=== PATIENT | female | born 1955 | race Caucasian/White ===

== ENCOUNTER → 2021-02-13 | Outpatient (CLI) | payer OTHER ==
--- NOTE | 2021-02-13 14:30 | CARD ---
MR#: [id number] Date of Study: 02/13/2021 Ordering Physician: KARYN BOJORQUEZ, Referring Physician: KARYN BOJORQUEZ, Tech: APPROVED REPORT EXAM: Two-dimensional and M-mode echocardiogram with Doppler and color Doppler. Other Information Quality : Good INDICATION Cardiomyopathy 2D DIMENSIONS RVDd3.1 (2.9-3.5cm)Left Atrium(2D)3.8 (1.6-4.0cm) IVSd1.0 (0.7-1.1cm)Aortic Root(2D)3.3 (2.0-3.7cm) LVDd5.5 (3.9-5.9cm)LVOT Diameter2.1 (1.8-2.4cm) PWd1.1 (0.7-1.1cm)LVDs4.9 (2.5-4.0cm) FS (%) 11.6 %SV36.9 ml Aortic Valve AoV Peak Dalton.116.0cm/sAoV VTI19.6cm AO Peak GR.5.4mmHgLVOT Peak Dalton.87.6cm/s AO Mean GR.3mmHgAVA (VMAX)2.52cm2 LETTY (VTI)2.54mt8AX P 1/2 Dhsr857ij Mitral Valve MV E Agltjfah33.4cm/sMV DECEL DKZZ179hg MV A Iktqgfux57.3cm/sE/A Ratio0.6 Tricuspid Valve TR P. Byxqncps440fy/sRAP FPTKSMPS4fuCx TR Peak Gr.57auDbGVMD43otOh Pulmonary Vein S1 Bfikzggd53.3cm/sD2 Lhlbpvrm16.0cm/s LEFT VENTRICLE The left ventricle is normal size. There is borderline concentric left ventricular hypertrophy. Left ventricle systolic function is moderate to moderately severely impaired. The Ejection Fraction is est imated at 30%. Septal motion consistent with conduction abnormality as well as global hypokinesis. Tr ansmitral Doppler flow pattern is Grade I-abnormal relaxation pattern. RIGHT VENTRICLE The right ventricle is normal size. The right ventricular systolic function is normal. ATRIA The left atrium size is normal. The right atrium size is normal. The interatrial septum is intact wit h no evidence for an atrial septal defect or patent foramen ovale as noted on 2-D or Doppler imaging. AORTIC VALVE The aortic valve is calcified but opens well. Doppler and Color Flow revealed mild aortic regurgitati on. There is no significant aortic valvular stenosis. MITRAL VALVE The mitral valve is calcified but opens well. Mitral annular calcification is mild. There is no evide nce of mitral valve prolapse. There is no mitral valve stenosis. Doppler and Color-flow revealed trac e to mild mitral regurgitation. TRICUSPID VALVE The tricuspid valve is normal in structure and function. Doppler and Color Flow revealed trace tricus pid regurgitation. The PA pressure was estimated at 19 mmHg. There is no tricuspid valve stenosis. PULMONIC VALVE The pulmonic valve is not well visualized. Doppler and Color Flow revealed no pulmonic valvular regur gitation. There is no pulmonic valvular stenosis. GREAT VESSELS The aortic root is normal in size. The ascending aorta is normal in size. The IVC is normal in size a nd collapses >50% with inspiration. PERICARDIAL EFFUSION There is no evidence of significant pericardial effusion. Critical Notification Critical Value: No <Conclusion> The left ventricle is normal size. Left ventricle systolic function is moderate to moderately severely impaired. The Ejection Fraction is estimated at 30%. Septal motion consistent with conduction abnormality as well as global hypokinesis. There is borderline concentric left ventricular hypertrophy. Doppler and Color Flow revealed mild aortic regurgitation. There is no significant aortic valvular stenosis. Doppler and Color-flow revealed trace to mild mitral regurgitation. Doppler and Color Flow revealed trace tricuspid regurgitation. The PA pressure was estimated at 19 mmHg. Signed by : Karyn Bojorquez MD Electronically Approved : 02/13/2021 14:29:54
== END ==
LOC: ECHO 12:40
PROVIDERS: ATTEND Internal Medicine Cardiovascular Disease
DX: I08.0 Rheumatic disorders of both mitral and aortic valves (principal)
CPT/HCPCS: 93306

== ENCOUNTER → 2021-09-17 | Outpatient (CLI) | payer OTHER ==
--- NOTE | 2021-09-17 14:35 | CARD ---
MR#: [id number] Date of Study: 09/17/2021 Ordering Physician: KARYN PATRICK, Referring Physician: KARYN PATRICK, Tech: Iris Serna, [facility] APPROVED REPORT EXAM: Two-dimensional and M-mode echocardiogram with Doppler and color Doppler. Other Information Quality : Good INDICATION Cardiomyopathy 2D DIMENSIONS RVDd4.0 (2.9-3.5cm)Left Atrium(2D)3.6 (1.6-4.0cm) IVSd1.0 (0.7-1.1cm)Aortic Root(2D)3.2 (2.0-3.7cm) LVDd5.7 (3.9-5.9cm)LVOT Diameter2.1 (1.8-2.4cm) PWd1.2 (0.7-1.1cm)LVDs4.7 (2.5-4.0cm) FS (%) 18.6 %SV61.5 ml LVEF(%)37.9 (>50%) Aortic Valve AoV Peak Dalton.118.1cm/sAoV VTI28.3cm AO Peak GR.5.6mmHgLVOT Peak Dalton.80.9cm/s LVOT VTI 15.19cmAO Mean GR.3mmHg LETTY (VMAX)1.62cw8VBE (VTI)1.84cm2 AI P 1/2 Gnou688na Mitral Valve MV E Stxbutts44.7cm/sMV DECEL APKL742qt MV A Dgrguaps35.3cm/sMV E Mean Gr.2mmHg MV QJP26vbO/A Ratio1.0 MVA (PHT)4.81cm2 TDI E/Lateral E'8.0E/Medial E'15.9 Pulmonary Valve PV Peak Cmeumvvf20.3cm/sPV Peak Grad.2mmHg Tricuspid Valve TR P. Dhxvzwam919fr/sRAP GVHVPIVB8flIy TR Peak Gr.14uqDuQFQE94hdFd LEFT VENTRICLE The Left Ventricle is mildly dilated. There is borderline to mild concentric left ventricular hypertr ophy. The systolic function is severely impaired. The Ejection Fraction is 30%. Wall motion abnormali ty consistent with conduction abnormality. There is severe global hypokinesis of the left ventricle. Tissue Doppler imaging reveals moderate left ventricular diastolic dysfunction. RIGHT VENTRICLE The right ventricle is normal size. There is normal right ventricular wall thickness. The right ventr icular systolic function is normal. ATRIA The left atrium is moderately dilated. The right atrium is mildly dilated. The interatrial septum is intact with no evidence for an atrial septal defect or patent foramen ovale as noted on 2-D or Dopple r imaging. AORTIC VALVE The aortic valve is calcified but opens well. Doppler and Color Flow revealed mild aortic regurgitati on. Calculated aortic valve area is 2.10 cm2 with maximum pressure gradient of 7 mmHg and mean pressu re gradient of 4 mmHg. MITRAL VALVE The mitral valve is normal in structure and function. There is no evidence of mitral valve prolapse. There is no mitral valve stenosis. Doppler and Color-flow revealed trace mitral regurgitation. TRICUSPID VALVE The tricuspid valve is normal in structure and function. Doppler and Color Flow revealed trace tricus pid regurgitation with an estimated PAP of 24 mmHg. There is no tricuspid valve stenosis. PULMONIC VALVE Doppler and Color Flow revealed trace to mild pulmonic valvular regurgitation. There is no pulmonic v alvular stenosis. GREAT VESSELS The aortic root is normal in size. The ascending aorta is normal in size. The IVC is normal in size a nd collapses >50% with inspiration. PERICARDIAL EFFUSION There is no evidence of significant pericardial effusion. Critical Notification Critical Value: No <Conclusion> The left ventricle is mildly dilated. The systolic function is severely impaired. The Ejection Fraction is 30%. Wall motion abnormality consistent with conduction abnormality. There is severe global hypokinesis of the left ventricle. Signed by : William Lindo, Electronically Approved : 09/17/2021 14:34:49
== END ==
LOC: ECHO 09:16
PROVIDERS: ATTEND Internal Medicine Cardiovascular Disease
DX: I35.1 Nonrheumatic aortic (valve) insufficiency (principal); I37.1 Nonrheumatic pulmonary valve insufficiency; I25.5 Ischemic cardiomyopathy
CPT/HCPCS: 93306

== ENCOUNTER → 2021-12-31 | Outpatient (CLI) | payer MEDICARE ==
--- NOTE | 2022-01-01 10:23 | CARD ---
MR#: [id number] Date of Study: 12/31/2021 Ordering Physician: GEORGES BOJORQUEZ, Referring Physician: GEORGES BOJORQUEZ, Tech: Maria Victoria Vilchis [facility] APPROVED REPORT EXAM: Two-dimensional and M-mode echocardiogram with Doppler and color Doppler. Other Information Quality : GoodHR: 76bpm Rhythm : Pacemaker INDICATION Cardiomyopathy RISK FACTORS Hypertension Obesity Hyperlipidemia 2D DIMENSIONS RVDd3.1 (2.9-3.5cm)Left Atrium(2D)4.0 (1.6-4.0cm) IVSd0.9 (0.7-1.1cm)Aortic Root(2D)3.2 (2.0-3.7cm) LVDd5.2 (3.9-5.9cm)LVOT Diameter2.2 (1.8-2.4cm) PWd1.3 (0.7-1.1cm)LVDs4.0 (2.5-4.0cm) FS (%) 23.1 %SV58.9 ml Aortic Valve AoV Peak Dalton.102.0cm/sAoV VTI19.2cm AO Peak GR.4.2mmHgLVOT Peak Dalton.78.3cm/s AO Mean GR.2mmHgAVA (VMAX)3.04cm2 Pulmonary Valve PV Peak Nczpfwgf30.7cm/s LEFT VENTRICLE The Left Ventricle is borderline dilated. There is mild concentric left ventricular hypertrophy. The systolic function is moderately to severely impaired. Left ventricular ejection fraction is 30 to 35% . There is global hypokinesis of the left ventricle. RIGHT VENTRICLE The right ventricle is normal size. There is normal right ventricular wall thickness. The right ventr icular systolic function is normal. ATRIA The left atrium size is normal. The right atrium size is normal. The interatrial septum is intact wit h no evidence for an atrial septal defect or patent foramen ovale as noted on 2-D or Doppler imaging. AORTIC VALVE The aortic valve is normal in structure and function. Doppler and Color Flow revealed trace aortic re gurgitation. There is no significant aortic valvular stenosis. MITRAL VALVE The mitral valve is normal in structure and function. There is no evidence of mitral valve prolapse. There is no mitral valve stenosis. Doppler and Color-flow revealed mild mitral regurgitation. TRICUSPID VALVE The tricuspid valve is normal in structure and function. Doppler and Color Flow revealed trace tricus pid regurgitation. There is no tricuspid valve stenosis. PULMONIC VALVE The pulmonary valve is normal in structure and function. Doppler and Color Flow revealed trace pulmon ic valvular regurgitation. GREAT VESSELS The aortic root is normal in size. The ascending aorta is normal in size. The IVC is normal in size a nd collapses >50% with inspiration. PERICARDIAL EFFUSION There is no evidence of significant pericardial effusion. Critical Notification Critical Value: No <Conclusion> The Left Ventricle is borderline dilated. The systolic function is moderately to severely impaired. Left ventricular ejection fraction is 30 to 35%. There is global hypokinesis of the left ventricle. There is mild concentric left ventricular hypertrophy. Doppler and Color Flow revealed trace aortic regurgitation. There is no significant aortic valvular stenosis. Doppler and Color-flow revealed mild mitral regurgitation. Doppler and Color Flow revealed trace tricuspid regurgitation. Signed by : Georges Bojorquez MD Electronically Approved : 01/01/2022 10:22:53
== END ==
LOC: ECHO 14:27
PROVIDERS: ATTEND Internal Medicine Cardiovascular Disease
DX: I34.0 Nonrheumatic mitral (valve) insufficiency (principal); I51.7 Cardiomegaly
CPT/HCPCS: 93306; C8929